=== PATIENT | male | born 1970 | race Two or more races ===

== ENCOUNTER 2022-02-26 17:51 | Inpatient (IN) | payer OTHER ==
[~2022-02-26] VITALS: Ht 188 cm; Wt 115.0 kg
[2022-02-26] MEDS ORDERED: AUGMENTIN 500-1 EACH PO (18:23)
[2022-02-26] MEDS ORDERED: HYDROCORTISONE30 GM TOP (18:23)
[2022-02-26] MEDS ORDERED: IBUPROFEN600 MG PO (18:23)
[2022-02-26] MEDS ORDERED: Vancomycin IV 1 GM in SODIUM CHLORIDE 0.9% 250ML 250 ML IV ONE (19:30)
[2022-02-26] MEDS ORDERED: SODIUM CHLORIDE 0.9% 1000ML 1,000 ML IV SCH (19:30)
[2022-02-26] MEDS ORDERED: Vancomycin IV 1 GM VIAL ONE (19:39)
[2022-02-26] MEDS ORDERED: KETOROLAC TROMETHAMINE 30 MG/ML VIAL IV PRN (19:45)
[2022-02-26] MEDS ORDERED: ONDANSETRON HCL INJ 2MG/ML 2ML 2 MG/ML VIAL IV PRN (19:45)
[2022-02-26] MEDS ORDERED: SODIUM CHLORIDE FLUSH 10 ML SYR INJ PRN (19:45)
[2022-02-26] MEDS ORDERED: KETOROLAC TROMETHAMINE 30 MG/ML VIAL IV STA (19:47)
[2022-02-26] MEDS: NICOTINE 21 MG/EA PATCH TOP SCH (23:36)
[2022-02-27] VITALS (7 sets, daily range): BP systolic 126–147; BP diastolic 63–87
[2022-02-27] MEDS ORDERED: SODIUM CHLORIDE 0.9% 250ML 250 ML ONE (04:14)
[2022-02-27 07:22] LABS: BASOPHILS % 0.6 % (0.0-1.0); EOSINOPHILS # (AUTO) 0.2 (0.0-0.4); EOSINOPHILS % 2.2 % (0.0-6.0); HEMATOCRIT 40.6 % (38.2-49.6); HEMOGLOBIN 14.1 g/dL (14.0-18.0); LYMPHOCYTES % 29.9 % (18.0-39.1); MEAN CORPUSCULAR HEMOGLOBIN 31.8 pg (28-32); MEAN CORPUSCULAR HGB CONC 34.7 g/dL (31-35); MEAN CORPUSCULAR VOLUME 91.6 fL (81-99); MONOCYTES # (AUTO) 0.7 (0.2-0.8); MONOCYTES % 9.8 % (4.4-11.3); NEUTROPHILS # (AUTO) 3.9 (2.1-6.9); NEUTROPHILS % 57.2 % (38.7-80.0); PLATELET COUNT 234 x10e3/uL (140-360); RED BLOOD COUNT 4.43 x10e6/uL (4.3-5.7); RED CELL DISTRIBUTION WIDTH 12.3 % (11.7-14.4)
[2022-02-27 07:45] LABS: ALBUMIN 3.5 g/dL (3.5-5.0); CALCIUM 9.2 mg/dL (8.4-10.2); CREATININE, SERUM 0.91 mg/dL (0.72-1.25)
[2022-02-27] MEDS: NICOTINE 21 MG/EA PATCH TOP SCH (09:32)
[2022-02-27] MEDS: Vancomycin IV 1 GM in SODIUM CHLORIDE 0.9% 250ML 250 ML IV SCH (16:44)
[2022-02-28] MEDS: Vancomycin IV 1 GM in SODIUM CHLORIDE 0.9% 250ML 250 ML IV SCH (03:58)
[2022-02-28 04:36] VITALS: BP 123/72
[2022-02-28 06:31] VITALS: BP 127/88
[2022-02-28 07:33] VITALS: BP 146/95
[2022-02-28 07:55] VITALS: BP 146/95
[2022-02-28] MEDS ORDERED: DOXYCYCLINE HY100 MG PO (08:34)
[2022-02-28] MEDS ORDERED: CEPHALEXIN500 MG PO (08:34)
[2022-02-28] MEDS ORDERED: NICODERM CQ1 EAC2 TOP (08:34)
[2022-02-28] MEDS: NICOTINE 21 MG/EA PATCH TOP SCH (08:56)
[2022-02-28 11:16] VITALS: BP 132/80
== END 2022-02-28 15:29 | disposition home or self-care (01) | DRG 603 ==
LOC: FSED 17:54 → ERHOLD 19:47 → MED/SURG3 21:10
PROVIDERS: ADMIT Internal Medicine; ATTEND Internal Medicine
DX: L03.113 Cellulitis of right upper limb (principal); E66.09 Other obesity due to excess calories; Z68.32 Body mass index [BMI] 32.0-32.9, adult; F17.200 Nicotine dependence, unspecified, uncomplicated; Z20.822 Contact with and (suspected) exposure to COVID-19; W57.XXXA Bitten or stung by nonvenomous insect and other nonvenomous arthropods, initial encounter
CPT/HCPCS: 36415; 80053; 80061; 83036; 85025; 87040; 99284; J0690; J1885; J3370; J7030; J7050